=== PATIENT | female | born 1970 | race Caucasian/White ===

== ENCOUNTER → 2018-04-30 11:16 | Outpatient (CLI) | payer OTHER, SELFPAY ==
--- NOTE | 2018-04-30 11:40 | RAD_ITS ---
STUDY: X-RAY - RIGHT SHOULDER REASON FOR EXAM: Female, 47 years old. Pain TECHNIQUE: 4 view(s) of the shoulder. COMPARISON: None. FINDINGS: Normal glenohumeral articulation. Normal acromioclavicular joint. Normal acromion. Normal humeral head and visualized proximal humerus. The soft tissue structures are unremarkable. Normal visualized pulmonary apex. RAD/Shoulder min 2 Views IMPRESSION: Normal x-ray examination of the shoulder. No fractures. No degenerative changes. No calcific tendinitis or bursitis. Electronically Signed: David Montoya MD at 3:35 EST Tel , Service support ,
== END ==
PROVIDERS: Family Provider Family Medicine; PCP Family Medicine; Referring Provider Family Medicine; Visit Provider Family Medicine
DX: M25.511 Pain in right shoulder (principal)
CPT/HCPCS: 73030

== ENCOUNTER → 2019-11-14 15:27 | Outpatient (CLI) | payer OTHER, SELFPAY ==
--- NOTE | 2019-11-14 09:30 | LES_PTH ---
PATIENT: CHANA NANCE LOC: [facility] U#:[id number] AGE/SX: 54/F ROOM: RE11/14/[address]: Dr. Kuldip Arenas MD : 1970 BED: DIS: SPEC #: [id number] RECD: 11/14/19 14:56 STATUS: TYLER CHIDI #: [id number] MALVIN: 11/14/19 09:[address]: Kuldip Arenas DEPT: SURGICAL PATHOLOGY RECD BY: Shira Marshall ENTERED: 11/17/19 09:41 SP TYPE: Lesion OTHR DR: Dr. Margareth Knowles MD Tissues: Tongue, NOS Procedures: Surgery Specimen Level IV HEADER OPERATION: Right tongue lesion PRE-OP DIAGNOSIS: Right tongue lesion TISSUE SUBMITTED: Right tongue lesion MICROSCOPIC DIAGNOSIS Right tongue lesion, biopsy: Benign fibroepithelial polyp, mildly inflamed. AM:janet 11/18/19 MICROSCOPIC DESCRIPTION Slides are reviewed. GROSS DESCRIPTION Received in fixative is one container labeled with the patient's name and designated right tongue lesion. The specimen consists of a round piece of hauser mucosal tissue measuring 0.5 cm in diameter and 0.5 cm in length. The specimen is inked and submitted entirely in one cassette. / SJ:rg 11/17/19 TC:5 CPT: 81325
== END ==
PROVIDERS: PCP Family Medicine; Referring Provider Otolaryngology; Visit Provider Otolaryngology
DX: K14.9 Disease of tongue, unspecified (principal)
CPT/HCPCS: 88305

== ENCOUNTER → 2022-07-25 | Outpatient (CLI) | payer OTHER, SELFPAY ==
--- NOTE | 2022-07-25 16:20 | RAD_ITS ---
INDICATION: ABDOMINAL PAIN EXAMINATION/TECHNIQUE: X-RAY - XR Abdomen W/ Decub and/or Erect Views COMPARISON: None FINDINGS: BOWEL GAS PATTERN: Non-obstructive. No bowel or stomach distention. FREE AIR: None ORGANOMEGALY: Not seen. CALCIFICATIONS: No abnormal calcifications observed. LOWER CHEST: No acute abnormal finding. BONES AND SOFT TISSUES: No acute abnormal finding. RAD/Abd Inc Decub and/or Erect IMPRESSION: Non-obstructive bowel gas pattern. Electronically Signed: Saurabh Fonseca MD at 21:36 EST ,
== END | disposition home or self-care (01) ==
LOC: MTRAD 16:06
PROVIDERS: PCP Family Medicine; Referring Provider Family Medicine; Visit Provider Family Medicine
DX: R10.9 Unspecified abdominal pain (principal)
CPT/HCPCS: 74019

== ENCOUNTER → 2023-12-21 | Outpatient (CLI) | payer OTHER, SELFPAY ==
[2023-12-21 14:33] LABS: Absolute Lymphocyte Count 2.87 X10^3/uL (0.83-4.51); Absolute Neutrophil Count 5.3 X10^3/uL (2.0-7.7); Basophil# 0.08 X10^3/uL; Basophil% 0.9 % (0-1); Eosinophil# 0.06 X10^3/uL; Eosinophils% 0.7 % (0-5); Hematocrit 44.1 % (37-47); Hemoglobin 14.3 g/dL (12.0-15.0); Lymphocyte # 2.87 X10^3/ul (0.83-4.51); Lymphocyte % 31.5 % (19-41); Mean Corp Hgb Conc 32.4 g/dL (32-36); Mean Corpuscular Hgb 29.4 pg (27.0-32.0); Mean Corpuscular Volume 90.7 fL (81-99); Monocyte# 0.74 X10^3/uL; Monocyte% 8.1 % (0-10); NRBC Flagged by Analyzer 0 % (0-5); Neutrophil # 5.32 X10^3/uL (2.7-7.7); Neutrophil % 58.5 % (47-70); Platelet Count 338 K/mm3 (150-450); RBC Distribution Width SD 43.3 fl (35.1-43.9); Red Blood Count 4.86 M/mm3 (4.2-5.4); White Blood Count 9.1 K/mm3 (4.4-11.0)
[2023-12-21 15:09] LABS: Thyroid Stim Hormone (TSH) 2.65 uIU/mL (0.358-3.74)
== END | disposition home or self-care (01) ==
LOC: MFPLAB 12:15
PROVIDERS: PCP Family Medicine; Visit Provider Family Medicine
DX: L20.9 Atopic dermatitis, unspecified (principal)
CPT/HCPCS: 36415; 84443; 85025